=== PATIENT | male | born 1995 | race Two or more races ===

== ENCOUNTER 2021-01-20 12:37 | Emergency (ER) | payer OTHER ==
[~2021-01-20] VITALS: Ht 172.7 cm; Wt 108.9 kg
[2021-01-20 12:59] VITALS: BP 159/86
[2021-01-20] MEDS ORDERED: ZOFRAN IV STA ×2 (13:02→14:30)
[2021-01-20] MEDS ORDERED: SUBLIMAZE IM STA (13:02)
[2021-01-20] MEDS ORDERED: NS 1000ML 1,000 ML IV STA (13:02)
[2021-01-20 13:07] VITALS: BP_SYST 156; BP_SYST 159; BP_DIAS 86
[2021-01-20] MEDS ORDERED: NS 1000ML 1,000 ML ONE (13:11)
[2021-01-20] MEDS ORDERED: ZOFRAN ONE ×2 (13:11→14:47)
[2021-01-20] MEDS ORDERED: SUBLIMAZE ONE (13:12)
[2021-01-20 13:16] LABS: BASOPHIL # 0.1 10^3/uL (0.0-0.1); BASOPHIL % 0.5 % (0.0-0.2); EOSINOPHIL % 0.1 % (0.0-5.0); LYMPHOCYTES # 1.08 10^3/uL1 (1.0-4.8); LYMPHOCYTES % 11.1 % (24.0-44.0); MEAN CORP HGB 31.3 pg (26-34); MONOCYTES # 0.3 10^3/uL (0.3-0.8); MONOCYTES % 3.1 % (5.0-12.0); NEUTROPHIL # 8.3 10^3/uL (1.8-7.7); NEUTROPHILS % 85.1 % (41.0-85.0); PLATELET COUNT 365 10^3/uL (150-400)
[2021-01-20 13:33] LABS: CALCIUM 8.3 mg/dL (8.4-10.5); CARBON DIOXIDE 26.9 mmol/L (20.0-32)
--- NOTE | 2021-01-20 14:20 | ER.PDOC ---
General Chief Complaint: Abdomen Pain Stated Complaint: RIGHT SIDE ABD PAIN Time seen by MD: 14:11 Source: patient Exam Limitations: no limitations History of Present Illness Timing/Duration: 4-6 hours Severity/Quality: severe Radiation: no radiation Associated Symptoms: nausea/vomiting Exacerbated by: movements, food Relieved By: nothing Vital Signs First Vital Signs Date Time Temp Pulse Resp B/P (MAP) Pulse Ox O2 Delivery O2 Flow Rate FiO2 01/20/21 12:59 98.7 78 20 99 01/20/21 13:07 156/86 (109) Room Air Last Vital Signs Date Time Temp Pulse Resp B/P (MAP) Pulse Ox O2 Delivery O2 Flow Rate FiO2 01/20/21 13:07 98.7 78 20 01/20/21 13:07 156/86 (109) 99 Room Air Past Medical History Medical History: no pertinent history Surgical History: no surgical history Social History Alcohol Use: none Drug Use: none Reviewed Nursing Reviewed: Vital Signs, Abn. Noted All Other Systems: Reviewed and Negative Physical Exam General Appearance: No Apparent Distress, WD/WN HEENT: PERRL/EOMI, Normal ENT Inspection, TMs Normal, Pharynx Normal Neck: Non-Tender, Full Range of Motion, Supple, Normal Inspection Respiratory: chest non-tender, lungs clear, normal breath sounds, no respiratory distress, no accessory muscle use Cardiovascular: Normal Peripheral Pulses, Regular Rate, Rhythm, No Edema, No Gallop, No JVD, No Murmur Gastrointestinal: Tenderness Back: Normal Inspection, No CVA Tenderness, No Vertebral Tenderness Extremities: Normal Range of Motion, Non-Tender, Normal Inspection, No Pedal Edema, No Calf Tenderness, Normal Capillary Refill, Pelvis Stable Neurologic/Psychiatric: event marketing assistant II-XII NML as Tested, No Motor/Sensory Deficits, Alert, Normal Mood/Affect, Oriented x 3 Skin: Normal Color, Warm/Dry Lymphatic: No Adenopathy Results/Orders Results/Orders Orders - CORONA RAUSCH MD Cbc With Auto Diff (01/20/21 13:02) Comprehensive Metabolic Panel (01/20/21 13:02) Amylase (01/20/21 13:02) Lipase (01/20/21 13:02) Helicobacter Pylori (01/20/21 13:02) PT (01/20/21 13:02) Partial Thromboplastin Time. (01/20/21 13:02) Urinalysis (01/20/21 13:02) Saline Lock (01/20/21 13:02) Ct Abd/Pelvis Wo Iv Contrast (01/20/21 13:02) Us Gallbladder (01/20/21 13:02) Fentanyl Citrate/Pf (Sublimaze) (01/20/21 13:02) 0.9 % Sodium Chloride (Ns 1000ml) (01/20/21 13:02) Ondansetron Hcl/Pf (Zofran) (01/20/21 13:02) 0.9 % Sodium Chloride (Ns 1000ml) (01/20/21 13:11) Ondansetron Hcl/Pf (Zofran) (01/20/21 13:11) Fentanyl Citrate/Pf (Sublimaze) (01/20/21 13:12) Fentanyl Citrate/Pf (Sublimaze) (01/20/21 14:30) Vital Signs Date Time Temp Pulse Resp B/P (MAP) Pulse Ox O2 Delivery O2 Flow Rate FiO2 01/20/21 13:07 98.7 78 20 01/20/21 13:07 98.7 78 20 156/86 (109) 99 Room Air 01/20/21 12:59 98.7 78 20 99 Administered Medications Medications (Trade) Dose Ordered Sig/Tabatha Route PRN Reason Start Time Stop Time Status Last Admin Dose Admin Fentanyl Citrate (Sublimaze) 100 mcg STAT ONCE IV 01/20/21 14:30 01/20/21 14:31 01/20/21 14:20 100 MCG Ondansetron HCl (Zofran) 4 mg STAT STAT IV 01/20/21 13:02 01/20/21 13:07 DC 01/20/21 13:18 4 MG Sodium Chloride 1,000 ml @ 0 mls/hr Q0M STAT IV 01/20/21 13:02 01/20/21 13:07 DC 01/20/21 13:18 0 MLS/HR Laboratory Tests Test 01/20/21 13:15 White Blood Count 9.8 10^3/uL (4.5-11.0) Red Blood Count 5.24 10^6/uL (4.50-5.90) Hemoglobin 16.4 g/dL (13.9-16.3) H Hematocrit 46.8 % (37.0-53.0) Mean Corpuscular Volume 89.3 fL (78-100) Mean Corpuscular Hemoglobin 31.3 pg (26-34) Mean Corpuscular Hemoglobin Concent 35.0 g/dL (33-36.5) Red Cell Distribution Width 12.0 % (11.5-14.5) Platelet Count 365 10^3/uL (150-400) Mean Platelet Volume 8.6 fL (7.8-11.0) Neutrophils (%) (Auto) 85.1 % (41.0-85.0) H Lymphocytes (%) (Auto) 11.1 % (24.0-44.0) L Monocytes (%) (Auto) 3.1 % (5.0-12.0) L Neutrophils # (Auto) 8.3 10^3/uL (1.8-7.7) H Lymphocytes # (Auto) 1.08 10^3/uL1 (1.0-4.8) Monocytes # (Auto) 0.3 10^3/uL (0.3-0.8) Absolute Immature Granulocyte (auto 0.01 10^3 u/L (0-2) Absolute Eosinophils (auto) 0.0 10^3/uL (0.0-0.2) Immature Granulocytes % 0.10 % (0.00-0.50) Eosinophils % 0.1 % (0.0-5.0) Basophils % 0.5 % (0.0-0.2) H Basophils # 0.1 10^3/uL (0.0-0.1) Prothrombin Time 11.2 SEC (9.6-12.0) Prothrombin Time INR (Non-Therap) 1.0 Activated Partial Thromboplast Time 21.6 SEC (24.67-30.72) Sodium Level 139 mmol/L (132-145) Potassium Level 3.7 mmol/L (3.6-5.2) Chloride Level 101.0 mmol/L (96-109) Carbon Dioxide Level 26.9 mmol/L (20.0-32) Anion Gap 14.8 Blood Urea Nitrogen 10 mg/dL (7-18) Creatinine 1.01 mg/dL (0.59-1.40) Estimated GFR () 109.8 (>/=60) Est GFR (CKD-EPI)(Non-Afr Estonian) 90.8 (>/=60) BUN/Creatinine Ratio 9.0 Glucose Level 149 mg/dL (70-110) H Calcium Level 8.3 mg/dL (8.4-10.5) L Total Bilirubin 0.7 mg/dL (0.2-1.0) Aspartate Amino Transferase (AST) 15 U/L (0-35) Alanine Aminotransferase (ALT) 21 U/L (12-78) Alkaline Phosphatase 51 U/L (50-136) Total Protein 7.5 g/dL (6.4-8.2) Albumin 3.9 g/dL (3.4-5.0) Globulin 3.6 Albumin/Globulin Ratio 1.083 Amylase Level 49 U/L (25-115) Lipase 45 U/L (114-286) L Helicobacter pylori Screen NEGATIVE (NEGATIVE) ER DEPART Departure Time of Disposition: 15:00 Disposition: 01 HOME / SELF CARE / HOMELESS Impression: Primary Impression: Gallstones Condition: Improved Referrals: PCP,UNKNOWN (PCP) PRIMARY CARE PROVIDER Duration or Time Spent with Pa: 12M CORONA RAUSCH MD Jan 20, 2021 14:20
[2021-01-20] MEDS ORDERED: TORADOL IV STA (14:30)
[2021-01-20] MEDS ORDERED: SUBLIMAZE IV ONE (14:30)
[2021-01-20 14:39] LABS: BILIRUBIN,URINE NEGATIVE (NEGATIVE); UA COLOR YELLOW; UROBILINOGEN,URINE 0.2 E.U./dL (0.2)
--- NOTE | 2021-01-20 14:44 | DIREP ---
PROCEDURE:US ABDOMEN LIMITED COMPARISON:None. INDICATIONS:RUQ PAIN, N/V X6HRS FINDINGS: CBD:4 mm GALLBLADDER WALL: 3 mm RIGHT KIDNEY: 11.8 cm PANCREAS:Visualized pancreatic head and body are unremarkable. The pancreatic tail is obscured by bowel gas. LIVER:Increased hepatic echotexture consistent with hepatic steatosis. No focal hepatic mass identified. Hepatopetal flow in the portal vein. Normal spectral waveform on the portal vein. GALLBLADDER:Nondilated gallbladder with multiple gallstones. No gallbladder wall thickening or pericholecystic fluid. BILIARY:There is no biliary ductal dilatation. RIGHT KIDNEY:Normal. No hydronephrosis. OTHER:Negative. No ascites is identified. CONCLUSION: 1. Cholelithiasis, nondilated gallbladder. 2. Hepatic steatosis. Dictated by: Rosy Appiah MD on 01/20/2021 at 02:41 PM
[2021-01-20] MEDS ORDERED: TORADOL ONE ×2 (14:47)
[2021-01-20 14:57] VITALS: BP 130/70
== END 2021-01-20 15:00 | disposition home or self-care (01) ==
LOC: ER 12:37
DX: K80.20 Calculus of gallbladder without cholecystitis without obstruction (principal); Z79.899 Other long term (current) drug therapy
CPT/HCPCS: 36415; 76705; 80053; 81003; 82150; 83690; 85025; 85610; 85730; 86677; 96361; 96374; 96375; 96376; 99284; J1885 ×2; J2405 ×2; J3010; J7030